=== PATIENT | male | born 1955 | race African-American/Black ===

== ENCOUNTER → 2017-06-06 | Outpatient (CLI) | payer BC ==
[2015-12-18 11:00] VITALS: BP 135/67
[~2017-06-06] MED LIST: ARMO250T4 PO; CELE200C PO; LISI-334 PO
--- NOTE | 2017-06-07 17:11 | SLEEP ---
DATE OF STUDY: 06/06/2017 OBJECTIVE: The patient is a 62-year-old male with history of narcolepsy, who has had increased somnolence, insomnia, fatigue, and awakening short of air. Body mass index 29. [place] sleep score 14. INTERPRETATION: Sleep architecture is characterized by sleep efficiency of 72% across the 7 hours of recording time. Stage volumes are normal except for a slightly decreased amount of stage III sleep. The sleep onset latency is 6.5 minutes. Respiratory monitoring does demonstrate respiratory events at a rate of 15 events per hour of sleep. The minimum oxygen saturation is 85%. The patient is started on treatment and achieved excellent control of his respiratory events using 9 cm of CPAP, Respironics DreamWear nasal pillows, medium size. The EKG monitoring shows no arrhythmia and there are no periodic limb movements of sleep. IMPRESSION: Abnormal polysomnogram showing obstructive sleep apnea and hypopnea treatable on 9 cm of CPAP, further details above. RECOMMENDATIONS: 1. I will attempt to arrange this setting for the patient. 2. The patient will follow up in my office. Thank you for letting me help with the patient's care. LILIA PHAN MD DR: NOA/danelle JOB#: [id number] / [id number] MICHAEL Ramirez MD MTDD
== END | disposition home or self-care (01) ==
LOC: SLPLAB 18:35
PROVIDERS: ATTEND Psychiatry & Neurology Neurology with Special Qualifications in Child Neurology
DX: G47.33 Obstructive sleep apnea (adult) (pediatric) (principal)
CPT/HCPCS: 95810

== ENCOUNTER → 2018-07-11 | Outpatient (CLI) | payer BC ==
[2015-12-18 11:00] VITALS: BP 135/67
[~2018-07-11] MED LIST changes: +ALBUTEROL SULFATE 2.5 MG/3 ML NEBU. NEB ONE
--- NOTE | 2018-07-16 16:16 | RESP ---
DATE OF SERVICE: ATTENDING PHYSICIAN: Dr. Romano. The patient's FEV1 was 1.27, which is 45% predicted and FVC 2.59, which is 71% predicted. The FEV1/FVC ratio was reduced. Post-bronchodilator, there was 16% improvement in FVC and 13% improvement in FEV1. Lung volume showed a total lung capacity of 119% predicted, residual volume 199% predicted. Diffusion capacity 49% predicted. IMPRESSION: 1. Moderate to severe obstructive airway disease. 2. Good response to bronchodilators. 3. Lung volumes consistent with air trapping. 4. Severely reduced diffusion capacity. CHAIM ROWELL MD DR: HÉCTOR/danelle JOB#: [id number] / [id number] MICHAEL Ramirez MD
== END | disposition home or self-care (01) ==
LOC: PF 10:36
PROVIDERS: ATTEND Internal Medicine
DX: J45.909 Unspecified asthma, uncomplicated (principal)
CPT/HCPCS: 94060; 94640; 94729; J7613

== ENCOUNTER → 2019-03-15 | Outpatient (CLI) | payer BC ==
[2015-12-18 11:00] VITALS: BP 135/67
[~2019-03-15] MED LIST changes: -ALBUTEROL SULFATE 2.5 MG/3 ML NEBU. NEB ONE; +CHLO15MO2 PO; +ORPH100T PO
--- NOTE | 2019-03-16 12:17 | CARD ---
MR#: [id number] Date of Study: 03/15/2019 Ordering Physician: LOVE BURCIAGA, Referring Physician: LOVE BURCIAGA, Tech: Janneth Lemus MAI APPROVED REPORT EXAM: Two-dimensional and M-mode echocardiogram with Doppler and color Doppler. Other Information Quality : GoodHR: 70bpm Rhythm : Pacemaker INDICATION Hypertension/HCVD 2D DIMENSIONS RVDd3.2 (2.9-3.5cm)Left Atrium(2D)3.6 (1.6-4.0cm) IVSd1.7 (0.7-1.1cm)Aortic Root(2D)3.0 (2.0-3.7cm) LVDd4.4 (3.9-5.9cm)LVOT Diameter2.1 (1.8-2.4cm) PWd0.9 (0.7-1.1cm)LVDs3.4 (2.5-4.0cm) FS (%) 23.1 %SV41.0 ml M-Mode DIMENSIONS Left Atrium(MM)3.81 (2.5-4.0cm)Aortic Root3.29 (2.2-3.7cm) Aortic Valve AoV Peak Reese.113.0cm/sAoV VTI21.2cm AO Peak GR.5.1mmHgLVOT Peak Reese.96.1cm/s AO Mean GR.2mmHgAVA (VMAX)3.07cm2 TONO (VTI)3.10cm2 Mitral Valve MV E Uudtnnev82.4cm/sMV DECEL VQAT411gg MV A Jnlcbqad80.6cm/sE/A Ratio0.5 Pulmonary Valve PV Peak Btpkdehq58.9cm/s Tricuspid Valve TR P. Datoawtt827ib/sRAP XWATVJZX7dmXu TR Peak Gr.16lnYfZBYC45thPp Pulmonary Vein S1 Pxgcklvn97.7cm/sD2 Xxrxopqs87.0cm/s LEFT VENTRICLE The left ventricle is normal size. There is normal left ventricular wall thickness. Left ventricle sy stolic function is mildly decreased. The Ejection Fraction is estimated at 45%. There is hypokinesis in the apical septal wall. Transmitral Doppler flow pattern is Grade I-abnormal relaxation pattern. RIGHT VENTRICLE The right ventricle is normal size. There is normal right ventricular wall thickness. The right ventr icular systolic function is normal. Pacer leads noted in RV/RA. ATRIA The left atrium size is normal. The right atrium size is normal. The interatrial septum is intact wit h no evidence for an atrial septal defect or patent foramen ovale as noted on 2-D or Doppler imaging. AORTIC VALVE The aortic valve is normal in structure and function. The aortic valve is trileaflet. Doppler and Col or Flow revealed no significant aortic regurgitation. There is no significant aortic valvular stenosi s. There is no aortic valvular vegetation. MITRAL VALVE The mitral valve is thickened but opens well. There is no evidence of mitral valve prolapse. There is no mitral valve stenosis. Doppler and Color-flow revealed mild mitral regurgitation. TRICUSPID VALVE The tricuspid valve is normal in structure and function. Doppler and Color Flow revealed trace tricus pid regurgitation. The PA pressure was estimated at 31 mmHg. There is no tricuspid valve prolapse or vegetation. There is no tricuspid valve stenosis. PULMONIC VALVE The pulmonic valve is not well visualized. GREAT VESSELS The aortic root is normal in size. The ascending aorta is normal in size. The IVC is normal in size a nd collapses >50% with inspiration. PERICARDIAL EFFUSION There is no evidence of significant pericardial effusion. Critical Notification Critical Value: No <Conclusion> The left ventricle is normal size. Left ventricle systolic function is mildly decreased. The Ejection Fraction is estimated at 45%. There is hypokinesis in the apical septal wall. Pacer leads noted in RV/RA. There is no significant aortic valvular stenosis. Doppler and Color Flow revealed no significant aortic regurgitation. Doppler and Color-flow revealed mild mitral regurgitation. Doppler and Color Flow revealed trace tricuspid regurgitation. The PA pressure was estimated at 31 mmHg. Signed by : Oren Pop MD Electronically Approved : 03/16/2019 12:17:00
== END | disposition home or self-care (01) ==
LOC: ECHO 13:55
PROVIDERS: ATTEND Internal Medicine Cardiovascular Disease
DX: I34.0 Nonrheumatic mitral (valve) insufficiency (principal); I10 Essential (primary) hypertension
CPT/HCPCS: 93306

== ENCOUNTER 2019-03-18 19:10 | Emergency (ER) | payer OTHER, BC ==
[~2019-03-18] VITALS: Ht 175.3 cm; Wt 80.7 kg
[~2019-03-18 19:10] MED LIST changes: -CHLO15MO2 PO; -ORPH100T PO
[2019-03-18 19:35] VITALS: BP 191/105
[2019-03-18] MEDS ORDERED: HYDROcodone/APAP 5/325MG 1 TAB TABLET PO ONE (20:15)
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
[2019-03-18] MEDS ORDERED: LIDOCAINE 2% 20 ML VIAL. IJ ONE (20:30)
[2019-03-18] MEDS ORDERED: LIDOCAINE 1%/EPI 1:100,000 20 ML VIAL. INJ ONE (20:30)
[2019-03-18] MEDS ORDERED: LIDOCAINE 2%/EPI 1:100,000 20 ML VIAL. IJ ONE (21:00)
[2019-03-18] MEDS ORDERED: ORPHENADRINE CITRATE 60 MG/2 ML VIAL. IM ONE (22:45)
[2019-03-18] MEDS ORDERED: CHLO15MO2 PO (23:19)
[2019-03-18] MEDS ORDERED: ORPH100T PO (23:19)
== END 2019-03-18 23:31 | disposition home or self-care (01) ==
LOC: ER 19:10
DX: S01.512A Laceration without foreign body of oral cavity, initial encounter (principal); E11.9 Type 2 diabetes mellitus without complications; I10 Essential (primary) hypertension; V47.9XXA Unspecified car occupant injured in collision with fixed or stationary object in traffic accident, initial encounter; Y93.89 Activity, other specified; Y92.410 Unspecified street and highway as the place of occurrence of the external cause; Y99.8 Other external cause status
CPT/HCPCS: 12014; 96372; 99283; J2360; J3490; 12011

== ENCOUNTER → 2019-04-10 | Outpatient (CLI) | payer BC ==
[2019-03-18 19:35] VITALS: BP 191/105
[~2019-04-10] MED LIST changes: +CHLO15MO2 PO; +ORPH100T PO; +REGADENOSON 0.4 MG/5 ML DISP.SYRIN. IV ONE
--- NOTE | 2019-04-10 11:54 | RAD ---
MR#: [id number] Date of Study: 04/10/2019 Ordering Physician: LOVE BURCIAGA, Referring Physician: SHWETA HUTCHINS Tech: JARVIS Thorne, ARRT (R) (N) APPROVED REPORT Test Type: Pharmacological Stress Nurse/Tech: Geetha Ovalle RN Test Indications: NSVT Cardiac History: Hypertension,Pacemaker,COPD,Diabetes Medications: See Electronic Medical Record Medical History: See Electronic Medical Record Resting ECG: Paced Rhythm Resting Heart Rate: 72 bpm Resting Blood Pressure: 134/77mmHg Pretest Chest Pain: No chest pain Nurse/Tech Notes S1,S2 and lungs are diminished in the bases. Consent: The procedure was explained to the patient in lay terms. Informed consent was witnessed. Obey eout was entered into [employer]. History and Stress Test performed by [facility] Details Pharmacologic stress testing was performed using 0.4mg per 5ml of regadenoson given intravenously ove r 7-10 seconds. Stress Symptoms No chest pain or symptoms. POST EXERCISE Reason for Termination: Infusion complete Target HR: No Max HR: 101 bpm Max Blood Pressure: 134/77mmHg Blood Pressure response to exercise: Normal blood pressure response during stress. Heart Rate response to exercise: WNL Chest Pain: No. Arrhythmia: Yes. PVC ST Change: No. INTERPRETATION Stress EKG Conclusion: Baseline EKG showed paced atrial sensed ventricular paced rhythm. Non diagnos tic changes at peak stress. No arrhythmias. Imaging Protocol IMAGE PROTOCOL: Rest Tc-99m/stress Tc-99m 1 day Rest: Stress: Viability: Radiopharm.Tc99m FpimnpupuLt89v Sestamibi Rdth94xWd 33mCi Img Date 04/10/2019 04/10/2019 Inj-Img Zgxj37qxc. 60min. Rest Admin Site:IV - Right WristAdministrator:EVIE [facility] Stress Admin Site: IV - Right WristAdministrator: EVIE [facility] STRESS DATA End Diast. Vol.112.0mlAv. Heart Rate72.0bpm End Syst. Vol.32.0mlCO Index BSA5.7L/min Myocardial Fcmx951.0gEject. Dtxrupzp03.0% Stress Rates Pk. Fill Rate2.44EDV/secLVtime Pk. Fill 140.32msec Pk. Empty Rate3.42ESV/secLVtime Pk. Pqifp871.60msec 1/3 Pk. Fill1.62EDV/sec Stress Scores Regional WT1.00Summed WT24.00 Regional WM0.00Summed WM0.00 LV Perfusion Scintigraphic images showed diaphragmatic attenuation artifact without any evidence of ischemia or in farct. Wall Motion Normal left ventricular systolic function with ejection fraction calculated at 71%. LV Perf. Quant 17 Seg. SSS8.00 17 Seg. SRS10.00 17 Seg. SDS1.00 Stress Defect Extent (% LAD)6.30Rest Defect Extent (% LAD)10.00Rev. Defect Extent (% LAD)0.60 Stress Defect Extent (% LCX) 27.50Rest Defect Extent (% LCX)40.00Rev. Defect Extent (% LCX)0.00 Stress Defect Extent (% RCA)10.00Rest Defect Extent (% RCA)3.30Rev. Defect Extent (% RCA)0.00 Stress Defect Extent (% SHAI)15.40Rest Defect Extent (% SHAI)16.30Rev. Defect Extent (% SHAI)1.30 Conclusion 1. Regadenoson cardioisotope stress test showed diaphragmatic attenuation artifact without any eviden ce of ischemia or infarct. 2. Normal left ventricular systolic function with ejection fraction calculated at 71%. 3. Low risk for cardiac events. Signed by : Skip Piper, Electronically Approved : 04/10/2019 11:54:02
== END | disposition home or self-care (01) ==
LOC: NM 08:16
PROVIDERS: ATTEND Internal Medicine Cardiovascular Disease
DX: I49.3 Ventricular premature depolarization (principal); I10 Essential (primary) hypertension; J44.9 Chronic obstructive pulmonary disease, unspecified; E11.9 Type 2 diabetes mellitus without complications; Z95.0 Presence of cardiac pacemaker
CPT/HCPCS: 78452; 93017; A9500; J2785

== ENCOUNTER → 2019-05-20 | Outpatient (CLI) | payer BC ==
[~2019-05-20] MED LIST changes: -REGADENOSON 0.4 MG/5 ML DISP.SYRIN. IV ONE; +ZOLPIDEM 5 MG TABLET. PO ONE
--- NOTE | 2019-05-21 17:54 | SLEEP ---
DATE OF STUDY: 05/20/2019 OBJECTIVE: The patient is a 64-year-old male previously studied on 06/06/2017. He has a history of narcolepsy and that study showed obstructive sleep apnea and hypopnea, treatable on 9 cm of CPAP. The patient returns for repeat polysomnogram because of increasing daytime somnolence. Height 5 feet 7 inches, weight 195 pounds, body mass index 30, [place] sleeps score 14. INTERPRETATION: Sleep architecture is characterized by sleep efficiency of 62% across the 6.9 hours of recording time. Slow-wave and REM sleep volumes are decreased. Sleep onset latency is 4 minutes. Respiratory monitoring shows a total of 22 events. The patient is kept on CPAP and at his previous setting of 9 cm, the apnea/hypopnea index is 3.8 events per hour of sleep. Periodic limb movements of sleep occur at the rate of 7 events per hour, 2 events per hour associated with arousal. No significant cardiac arrhythmias are observed. IMPRESSION: Abnormal polysomnogram showing mild obstructive sleep apnea-hypopnea treatable on his current setting, 9 cm using a Respironics DreamWear full face mask, medium size. RECOMMENDATIONS: We will continue on his current setting and the patient will follow up in my office as scheduled. Thank you for letting us help with the patient's care. LILIA PHAN MD DR: NOA/danelle JOB#: [id number] / [id number] Dr. Lakeisha Gonsalez
== END | disposition home or self-care (01) ==
LOC: RT 18:04
PROVIDERS: ATTEND Psychiatry & Neurology Neurology with Special Qualifications in Child Neurology
DX: G47.33 Obstructive sleep apnea (adult) (pediatric) (principal); G47.419 Narcolepsy without cataplexy
CPT/HCPCS: 95811

== ENCOUNTER → 2019-10-29 | Outpatient (CLI) | payer BC ==
[~2019-10-29] MED LIST changes: -ZOLPIDEM 5 MG TABLET. PO ONE
--- NOTE | 2019-10-29 16:10 | RAD ---
EXAM: Chest, 2 views. HISTORY: Shortness of air. COMPARISON: 12/18/2015 FINDINGS: 2 views of the chest are obtained. There is no infiltrate, pleural effusion or pneumothorax. There is suspected biapical pleural parenchymal scarring. There is stable nodular right apical thickening. There is a stable cardiac silhouette. IMPRESSION: No acute pulmonary finding. Electronically signed by: Kristie Brito MD (10/29/2019 4:07 PM) [facility] [place]
== END | disposition home or self-care (01) ==
LOC: RAD 12:26
PROVIDERS: ATTEND Internal Medicine Critical Care Medicine
DX: J98.4 Other disorders of lung (principal)
CPT/HCPCS: 71046

== ENCOUNTER → 2019-12-09 | Outpatient (CLI) | payer BC ==
--- NOTE | 2019-12-09 10:19 | RAD ---
CT CHEST WO CONTRAST Indication: Lung nodule Technique: Noncontrast CT imaging was performed of the chest, multiplanar reconstruction images submitted. One or more of the following individualized dose reduction techniques were utilized for this examination: 1. Automated exposure control 2. Adjustment of the mA and/or kV according to patient size 3. Use of iterative reconstruction technique. Comparison: None Findings: There is some motion. There is dual lead left electronic cardiac device. There is no pneumothorax or pleural pericardial fluid. There is mild linear and reticular density of the right lower lobe adjacent to larger osteophytes likely mild fibrotic change or atelectasis such as seen on images 26 through 43 series 2. There is more linear-appearing density near the lung apices bilaterally, right greater than left likely component of fibrotic change. No suspicious nodularity is identified. There is mild centrilobular emphysema. Thoracic aortic caliber is within normal limits. There are some small mediastinal nodes, no significant chest lymphadenopathy. There is probable mild hepatic steatosis. There are some splenic and hepatic granulomas. There is multilevel thoracic spondylosis and degenerative disc disease. IMPRESSION: 1. No discrete suspicious pulmonary nodularity is identified, exam degraded by some motion. There is more linear-appearing density of the lung apices bilaterally greater on the right more likely component of fibrotic change. There is centrilobular emphysema. 2. There is hepatic steatosis. Electronically signed by: Unruly Jones MD (12/09/2019 10:16 AM) [id number]
== END ==
LOC: CT 09:26
PROVIDERS: ATTEND Internal Medicine Critical Care Medicine
DX: J43.2 Centrilobular emphysema (principal); J98.4 Other disorders of lung; K76.0 Fatty (change of) liver, not elsewhere classified; M51.34 Other intervertebral disc degeneration, thoracic region; M47.814 Spondylosis without myelopathy or radiculopathy, thoracic region
CPT/HCPCS: 71250

== ENCOUNTER → 2020-09-24 | Outpatient (CLI) | payer BC ==
--- NOTE | 2020-09-24 13:02 | CARD ---
MR#: [id number] Date of Study: 09/24/2020 Ordering Physician: LOVE BURCIAGA, Referring Physician: LOVE BURCIAGA, Tech: Livia Rueda APPROVED REPORT EXAM: Two-dimensional and M-mode echocardiogram with Doppler and color Doppler. Other Information Quality : AverageHR: 68bpm INDICATION Hypertension/HCVD Cardiac Pacemaker in situ Surgery/Intervention Pacemaker: RISK FACTORS Previous smoker 2D DIMENSIONS RVDd2.9 (2.9-3.5cm)Left Atrium(2D)3.2 (1.6-4.0cm) IVSd1.6 (0.7-1.1cm)Aortic Root(2D)3.0 (2.0-3.7cm) LVDd4.2 (3.9-5.9cm)LVOT Diameter1.9 (1.8-2.4cm) PWd1.1 (0.7-1.1cm)LVDs2.5 (2.5-4.0cm) FS (%) 41.1 %SV57.8 ml LVEF(%)72.3 (>50%) Aortic Valve AoV Peak Reese.154.0cm/sAoV VTI32.8cm AO Peak GR.9.5mmHgLVOT Peak Reese.127.2cm/s AO Mean GR.5mmHgAVA (VMAX)2.43cm2 Mitral Valve MV E Txqhccwn29.9cm/sMV DECEL NVFB459kf MV A Bfvckclv30.6cm/sE/A Ratio0.8 Pulmonary Valve PV Peak Iybkavsk16.5cm/s Tricuspid Valve TR P. Uzbbsnfb186qa/sRAP ABPWDUEG3tvIj TR Peak Gr.50ujGwWXYO66cpSm Pulmonary Vein PVa unguggld754ouyv LEFT VENTRICLE The left ventricle is normal size. There is mild to moderate concentric left ventricular hypertrophy. The left ventricular systolic function is normal. The Ejection Fraction is 60%. Septal motion consis tent with pacemaker activation. Transmitral Doppler flow pattern is Grade I-abnormal relaxation patte rn. RIGHT VENTRICLE The right ventricle is normal size. There is normal right ventricular wall thickness. The right ventr icular systolic function is normal. There is a pacemaker lead in the right ventricle. ATRIA The left atrium size is normal. The right atrium size is normal. The interatrial septum is intact wit h no evidence for an atrial septal defect or patent foramen ovale as noted on 2-D or Doppler imaging. AORTIC VALVE The aortic valve is normal in structure and function. Doppler and Color Flow revealed no significant aortic regurgitation. There is no significant aortic valvular stenosis. Calculated aortic valve area is 2.7 cm2 with maximum pressure gradient of 10 mmHg and mean pressure gradient of 5 mmHg. MITRAL VALVE The mitral valve is normal in structure and function. There is no evidence of mitral valve prolapse. There is no mitral valve stenosis. Doppler and Color-flow revealed trace mitral regurgitation. TRICUSPID VALVE The tricuspid valve is normal in structure and function. Doppler and Color Flow revealed trace tricus pid regurgitation with an estimated PAP of 30 mmHg. There is no tricuspid valve stenosis. PULMONIC VALVE The pulmonary valve is normal in structure and function. Doppler and Color Flow revealed no pulmonic valvular regurgitation. GREAT VESSELS The aortic root is normal in size. The IVC is normal in size and collapses >50% with inspiration. PERICARDIAL EFFUSION There is no evidence of significant pericardial effusion. Critical Notification Critical Value: No <Conclusion> The left ventricular systolic function is normal. The Ejection Fraction is 60%. Transmitral Doppler flow pattern is Grade I-abnormal relaxation pattern. Pacer lead noted RA/RV. Trace mitral regurgitation. Trace tricuspid regurgitation with an estimated PAP of 30 mmHg. There is no evidence of significant pericardial effusion. Signed by : Skip Piper, Electronically Approved : 09/24/2020 13:02:05
== END ==
LOC: ECHO 10:26
PROVIDERS: ATTEND Internal Medicine Cardiovascular Disease
DX: I11.9 Hypertensive heart disease without heart failure (principal); Z95.0 Presence of cardiac pacemaker
CPT/HCPCS: 93306

== ENCOUNTER → 2021-08-25 | Outpatient (CLI) | payer BC ==
[~2021-08-25] MED LIST changes: -LISI-334 PO; +LISI20TA18 PO
--- NOTE | 2021-08-25 16:04 | CARD ---
MR#: [id number] Date of Study: 08/25/2021 Ordering Physician: LOVE BURCIAGA, Referring Physician: LOVE BURCIAGA, Tech: Blanca Marybeth, [facility] APPROVED REPORT EXAM: Two-dimensional and M-mode echocardiogram with Doppler and color Doppler. Other Information Quality : AverageHR: 62bpm Rhythm : Pacemaker INDICATION Sick sinus syndrome RISK FACTORS Hyperlipidemia Diabetes Asthma 2D DIMENSIONS RVDd3.3 (2.9-3.5cm)Left Atrium(2D)3.4 (1.6-4.0cm) IVSd1.5 (0.7-1.1cm)Aortic Root(2D)2.9 (2.0-3.7cm) LVDd5.1 (3.9-5.9cm)LVOT Diameter2.0 (1.8-2.4cm) PWd1.0 (0.7-1.1cm)LVDs3.3 (2.5-4.0cm) FS (%) 36.2 %SV82.0 ml LVEF(%)65.6 (>50%) Aortic Valve AoV Peak Reese.129.4cm/sAoV VTI27.9cm AO Peak GR.6.7mmHgLVOT Peak Reese.115.4cm/s LVOT VTI 24.03cmAO Mean GR.4mmHg TONO (VMAX)2.21es7AAH (VTI)2.70cm2 Mitral Valve MV E Djykusih09.0cm/sMV DECEL [id number] MV A Qigkvobb99.9cm/sMV E Mean Gr.1mmHg MV IUS35wmA/A Ratio0.8 MVA (PHT)2.82cm2 TDI E/Lateral E'9.9E/Medial E'8.7 Pulmonary Valve PV Peak Uecphcny85.7cm/sPV Peak Grad.3mmHg Tricuspid Valve TR P. Ycjgwcyu508wg/sRAP LEZLTLAB4ygBh TR Peak Gr.73evRsWCJZ08ddNm Pulmonary Vein PVa viwwlvhu002eont LEFT VENTRICLE The left ventricle is normal size. There is mild to moderate concentric left ventricular hypertrophy. The left ventricular systolic function is normal. The Ejection Fraction is 55%. Septal wall motion c onsistent with conduction abnormality. Transmitral Doppler flow pattern is Grade I-abnormal relaxatio n pattern. RIGHT VENTRICLE The right ventricle is normal size. There is normal right ventricular wall thickness. The right ventr icular systolic function is normal. There is a pacemaker lead in the right ventricle. ATRIA The left atrium size is normal. The right atrium size is normal. The interatrial septum is intact wit h no evidence for an atrial septal defect or patent foramen ovale as noted on 2-D or Doppler imaging. AORTIC VALVE The aortic valve is normal in structure and function. Doppler and Color Flow revealed no significant aortic regurgitation. There is no significant aortic valvular stenosis. Calculated aortic valve area is 2.12 cm2 with maximum pressure gradient of 9 mmHg and mean pressure gradient of 5 mmHg. MITRAL VALVE The mitral valve is normal in structure and function. There is no evidence of mitral valve prolapse. There is no mitral valve stenosis. Doppler and Color-flow revealed trace mitral regurgitation. TRICUSPID VALVE The tricuspid valve is normal in structure and function. Doppler and Color Flow revealed trace tricus pid regurgitation with an estimated PAP of 32 mmHg. There is no tricuspid valve stenosis. PULMONIC VALVE The pulmonic valve is not well visualized. GREAT VESSELS The aortic root is normal in size. The IVC is normal in size and collapses >50% with inspiration. PERICARDIAL EFFUSION There is no evidence of significant pericardial effusion. Critical Notification Critical Value: No <Conclusion> The left ventricular systolic function is normal. The Ejection Fraction is 55%. Transmitral Doppler flow pattern is Grade I-abnormal relaxation pattern. Pacer wire noted RA/RV. Trace mitral regurgitation. Trace tricuspid regurgitation with an estimated PAP of 32 mmHg. There is no evidence of significant pericardial effusion. Signed by : Skip Piper, Electronically Approved : 08/25/2021 16:04:37
== END ==
LOC: ECHO 09:44
PROVIDERS: ATTEND Internal Medicine Cardiovascular Disease
DX: I51.7 Cardiomegaly (principal); I49.5 Sick sinus syndrome; Z95.0 Presence of cardiac pacemaker
CPT/HCPCS: 93306

== ENCOUNTER → 2022-01-24 | Outpatient (CLI) | payer BC ==
[~2022-01-24] MED LIST changes: +REGADENOSON 0.4 MG/5 ML DISP.SYRIN. IV ONE
--- NOTE | 2022-01-24 16:24 | RAD ---
MR#: [id number] Date of Study: 01/24/2022 Ordering Physician: LOVE BURCIAGA, Referring Physician: SHWETA HUTCHINS Tech: RT Sanford Rosa) (N) APPROVED REPORT Test Type: Pharmacological Stress Nurse/Tech: Renu Gonzalez RN Test Indications: nonsustained ventricular tachycardia Cardiac History: COPD, HTN, PPM, x-smoker, DM Medications: See Electronic Medical Record Medical History: See Electronic Medical Record Resting ECG: Pacemaker spiked noted Resting Heart Rate: 61 bpm Resting Blood Pressure: 122/60mmHg Pretest Chest Pain: None Nurse/Tech Notes Lungs JOSE, S1S2 Consent: The procedure was explained to the patient in lay terms. Informed consent was witnessed. Obey eout was entered into [employer]. History and Stress Test performed by RT Moe (R) (N) Pharm. Details Pharmacologic stress testing was performed using 0.4mg per 5ml of regadenoson given intravenously ove r 7-10 seconds. Stress Symptoms No chest pain or symptoms. POST EXERCISE Reason for Termination: Infusion complete Max HR: 125 bpm Max Blood Pressure: 142/75mmHg Blood Pressure response to exercise: Normal blood pressure response during stress. Heart Rate response to exercise: normal response Chest Pain: No. Arrhythmia: No. ST Change: No. INTERPRETATION Stress EKG Conclusion: Baseline EKG showed AV paced rhythm. Nondiagnostic changes at peak stress. N o arrhythmias. Imaging Protocol IMAGE PROTOCOL: Rest Tc-99m/stress Tc-99m 1 day Rest: Stress: Viability: Radiopharm.Tc99m TbyyszamtRp99c Sestamibi Dose10.5mCi 31.3mCi Duration 13min. 13min. Img Date 01/24/2022 01/24/2022 Inj-Img Lofj74zop. 60min. Rest Admin Site:IV - Right HandAdministrator:RT Sanford De León)(N) Stress Admin Site: IV - Right HandAdministrator: RT Sanford Rosa)(N) STRESS DATA End Diast. Vol.92.0mlLVEDV index BSA44.0ml End Syst. Vol.17.0mlLVESV index BSA8.0ml Myocardial Avzv056.0gEject. Bhcesmel48.0% Stress Scores Regional WT1.00Summed WT14.00 Regional WM0.00Summed WM0.00 Study quality was fair. Left Ventricular size was Normal at Rest and Stress. Lung uptake was . Left Ventricular ejection fraction is 82%. The rest and stress images show normal perfusion, normal contraction and thickening. LV Perf. Quant 17 Seg. SSS6.00 17 Seg. SRS3.00 17 Seg. SDS4.00 Stress Defect Extent (% LAD)2.50Rest Defect Extent (% LAD)0.00Rev. Defect Extent (% LAD)2.50 Stress Defect Extent (% LCX) 66.30Rest Defect Extent (% LCX)36.30Rev. Defect Extent (% LCX)62.50 Stress Defect Extent (% RCA)3.30Rest Defect Extent (% RCA)0.00Rev. Defect Extent (% RCA)3.30 Stress Defect Extent (% SHAI)16.30Rest Defect Extent (% SHAI)8.50Rev. Defect Extent (% SHAI)15.40 Conclusion 1. Regadenoson cardioisotope stress test did not show any evidence of ischemia or infarct. 2. Normal left ventricular systolic function with ejection fraction calculated at 82%. 3. Low risk for cardiac events. Signed by : Skip Piper, Electronically Approved : 01/24/2022 16:24:10
== END ==
LOC: NM 10:35
PROVIDERS: ATTEND Internal Medicine Cardiovascular Disease
DX: I47.2 Ventricular tachycardia (principal)
CPT/HCPCS: 78452; 93017; A9500; J2785